=== PATIENT | female | born 1995 | race Caucasian/White ===

== ENCOUNTER 2017-10-27 06:33 | Emergency (ER) | payer BC, OTHER ==
[~2017-10-27] VITALS: Ht 160 cm; Wt 72.6 kg
--- OUTSIDE RECORDS SUMMARY | 2017-10-27 06:43 | XMS REPORT ---
Author Author DEONDRE PEDRAZA [facility] Address [address] [place] [address] Care Team Providers Care San[employer] Land[employer] Supervisor Name Role Phone DEONDRE PEDRAZA Unavailable PROBLEMS Type Condition ICD9-CM Code OZE33-YO Code Onset Dates Condition Status SNOMED Code Problem Anxiety F41.9 Active 57549531 Problem control counseling Z30.9 Active 53952546 ALLERGIES Substance Reaction Event Type Date Status Amoxicillin rash Drug Allergy Jan, Active SOCIAL HISTORY Never Assessed PLAN OF CARE Activity Details Follow Up prn Reason: VITAL SIGNS Height 64.5 in 2017-01-12 Weight 143 lbs 2017-01-12 Temperature 98.2 degrees Fahrenheit 2017-01-12 Heart Rate 70 bpm 2017-01-12 Respiratory Rate 16 2017-01-12 BMI 24.16 kg/m2 2017-01-12 Blood pressure systolic 120 mmHg 2017-01-12 Blood pressure diastolic 70 mmHg 2017-01-12 MEDICATIONS Medication Instructions Dosage Frequency Start Date End Date Duration Status Xanax 0.5 MG Orally Twice a day 1 tablet 12h Active Sertraline HCl 100 MG Orally Once a day 1 tablet 24h Active RESULTS No Results PROCEDURES No Known procedures IMMUNIZATIONS No Known Immunizations MEDICAL (GENERAL) HISTORY Type Description Date Medical History anxiety Surgical History Myringotomy with venilating tube insertion unknown Surgical History Tonsillectomy unknown Surgical History Adenoidectomy unknown
--- OUTSIDE RECORDS SUMMARY | 2017-10-27 06:43 | XMS REPORT | Continuity of Care Document ---
Author Author [facility] Address Unknown Phone Unavailable Allergies Active Description Code Type Severity Reaction Onset Reported/Identified Relationship to Patient Clinical Status Yes amoxicillin Drug Allergy N/A N/A 05/02/2011 Medications There is no data. Problems Date Dx Coded Attending Type Code Diagnosis Diagnosed By 05/02/2011 ELVIRA JJ MD 625.3 DYSMENORRHEA 05/02/2011 ASHLEY DRISCOLL DO 625.3 DYSMENORRHEA 04/15/2012 ELVIRA JJ MD V25.02 Contraceptives 04/15/2012 ASHLEY DRISCOLL DO V25.02 Contraceptives 03/31/2014 ASHLEY DRISCOLL DO V74.5 SCREENING EXAMINATION FOR VENEREAL DISEASE Procedures Code [place] [address] URINE TEST (IN- HOUSE) 05/03/2013 08629 GC/CHLAM URINE (STATE) 03/31/2014 [id number] TEST, URINE (IN- HOUSE) 03/31/2014 Results There is no data. Encounters ACCT No. Visit Date/Time Discharge Status Pt. Type Provider Facility Loc./Unit Complaint [id number] 03/31/2014 09:55:00 03/31/2014 23:59:59 CLS Outpatient ASHLEY DRISCOLL DO [id number] 05/03/2013 14:53:00 05/03/2013 23:59:59 CLS Outpatient ELVIRA JJ MD
[2017-10-27] MEDS ORDERED: KETOROLAC 30 MG/ML VIAL IVP STA (06:49)
[2017-10-27] MEDS ORDERED: NS IV 1000 ML 1,000 ML IV STA ×2 (06:49→08:35)
[2017-10-27 06:56] LABS: BASOPHILS % (AUTO) 0 % (0-10); EOSINOPHILS % (AUTO) 0 % (0-10); LYMPHOCYTES # (AUTO) 0.4 X 10^3 (1.0-4.0); LYMPHOCYTES % (AUTO) 3 % (12-44); MEAN CORPUSCULAR HEMOGLOBIN 31 PG (25-34); MEAN CORPUSCULAR HGB CONC 33 G/DL (32-36); MEAN CORPUSCULAR VOLUME 94 FL (80-99); MEAN PLATELET VOLUME 10.2 FL (7.4-10.4); MONOCYTES # (AUTO) 0.5 X 10^3 (0.0-1.0); MONOCYTES % (AUTO) 4 % (0-12); NEUTROPHILS # (AUTO) 13.1 X 10^3 (1.8-7.8); NEUTROPHILS % (AUTO) 93 % (42-75); PLATELET COUNT 298 10^3/uL (130-400); RED CELL DISTRIBUTION WIDTH 12.2 % (10.0-14.5); WHITE BLOOD COUNT 14.1 10^3/uL (4.3-11.0)
--- NOTE | 2017-10-27 06:56 | ED General ---
General Chief Complaint: General Problems/Pain Stated Complaint: VOMITING,POSS FEVER,DIZZY Source of Information: Patient Exam Limitations: No Limitations History of Present Illness Time Seen by Provider: 06:42 Initial Comments Here with report of nausea and vomiting with fever and feeling dizzy. Started yesterday evening. Tried taking some NyQuil last night but vomited that right afterwards. Has not been unable to keep anything else down since. States the vomiting started before the cough. Currently is on her menstrual period and has some lower abdominal cramping. She is not sure if shows related to her menstrual cycle or not. Seems to be more on the right lower side. Denies dysuria. No diarrhea. She did not have influenza vaccination this year. Timing/Duration: 12 Hours Severity: Moderate Associated Systoms: No Chest Pain, Cough, Fever/Chills, Loss of Appetite, Nausea/Vomiting, No Shortness of Air, No Weakness Allergies and Home Medications Allergies Coded Allergies: amoxicillin (Verified Allergy, Unknown, 10/27/17) Constitutional: see HPI, chills, fever EENTM: nose congestion, throat pain, No ear pain, No hoarseness Respiratory: cough, No short of breath Cardiovascular: no symptoms reported Gastrointestinal: see HPI, abdominal pain (lower), No diarrhea, nausea, vomiting Genitourinary: no symptoms reported LMP: Oct 24, 2017 Musculoskeletal: no symptoms reported Skin: no symptoms reported Psychiatric/Neurological: No Symptoms Reported All Other Systems Reviewed Negative Unless Noted: Yes Past Kcbhbna-Ulttfx-Bpzpwr Hx Patient Social History Alcohol Use: Occasionally Uses Recreational Drug Use: No Smoking Status: Never a Smoker Recent Foreign Travel: No Contact w/Someone Who Travel: No Recent Hopitalizations: No Physical Abuse: No Sexual Abuse: No Mistreated: No Fear: No Surgeries History of Surgeries: Yes Surgeries: Adenoidectomy, Ear Surgery, Tonsillectomy Respiratory History of Respiratory Disorde: No Cardiovascular History of Cardiac Disorders: No Neurological History of Neurological Disord: No Genitourinary History of Genitourinary Disor: No Gastrointestinal History of Gastrointestinal Di: No Musculoskeletal History of Musculoskeletal Dis: No Endocrine History of Endocrine Disorders: No HEENT History of HEENT Disorders: No Cancer History of Cancer: No Psychosocial History of Psychiatric Problem: No Suicide Risk Score: 0 Integumentary History of Skin or Integumenta: No Reviewed Nursing Assessment Reviewed/Agree w Nursing PMH: Yes Family Medical History Significant Family History: No Pertinent Family Hx Physical Exam Vital Signs Vital Sign - Last 12Hours 10/27/17 06:42 Temp 101.8 Pulse 109 Resp 20 B/P (MAP) 121/74 (90) Pulse Ox 98 O2 Delivery Room Air Capillary Refill : General Appearance: No Apparent Distress, WD/WN HEENT: PERRL/EOMI, Pharynx Normal Neck: Non Tender, Supple Respiratory: Lungs Clear, Normal Breath Sounds Cardiovascular: No Murmur, Tachycardia Gastrointestinal: Soft, Tenderness (question of mild tenderness with deep palpation bilateral lower quadrants with right greater than left.) Back: Normal Inspection, No CVA Tenderness, No Vertebral Tenderness Extremity: Normal Range of Motion, Non Tender Neurologic/Psychiatric: Alert, Oriented x3 Skin: Normal Color, Warm/Dry Progress/Results/Core Measures Suspected Sepsis SIRS Temperature: Pulse: Respiratory Rate: Laboratory Tests 10/27/17 06:45: White Blood Count 14.1H Blood Pressure / Mean: Laboratory Tests 10/27/17 06:45: Creatinine 0.81, Platelet Count 298, Total Bilirubin 0.7 Results/Orders Lab Results Laboratory Tests Test 10/27/17 06:45 10/27/17 07:03 Range/Units White Blood Count 14.1 H 4.3-11.0 10^3/uL Red Blood Count 4.30 L 4.35-5.85 10^6/uL Hemoglobin 13.5 11.5-16.0 G/DL Hematocrit 41 35-52 % Mean Corpuscular Volume 94 80-99 FL Mean Corpuscular Hemoglobin 31 25-34 PG Mean Corpuscular Hemoglobin Concent 33 32-36 G/DL Red Cell Distribution Width 12.2 10.0-14.5 % Platelet Count 298 130-400 10^3/uL Mean Platelet Volume 10.2 7.4-10.4 FL Neutrophils (%) (Auto) 93 H 42-75 % Lymphocytes (%) (Auto) 3 L 12-44 % Monocytes (%) (Auto) 4 0-12 % Eosinophils (%) (Auto) 0 0-10 % Basophils (%) (Auto) 0 0-10 % Neutrophils # (Auto) 13.1 H 1.8-7.8 X 10^3 Lymphocytes # (Auto) 0.4 L 1.0-4.0 X 10^3 Monocytes # (Auto) 0.5 0.0-1.0 X 10^3 Eosinophils # (Auto) 0.0 0.0-0.3 10^3/uL Basophils # (Auto) 0.0 0.0-0.1 10^3/uL Neutrophils % (Manual) 90 % Lymphocytes % (Manual) 2 % Monocytes % (Manual) 2 % Band Neutrophils 6 % Blood Morphology Comment NORMAL Sodium Level 140 135-145 MMOL/L Potassium Level 3.7 3.6-5.0 MMOL/L Chloride Level 103 98-107 MMOL/L Carbon Dioxide Level 25 21-32 MMOL/L Anion Gap 12 5-14 MMOL/L Blood Urea Nitrogen 17 7-18 MG/DL Creatinine 0.81 0.60-1.30 MG/DL Estimat Glomerular Filtration Rate > 60 BUN/Creatinine Ratio 21 Glucose Level 139 H 70-105 MG/DL Calcium Level 9.4 8.5-10.1 MG/DL Total Bilirubin 0.7 0.1-1.0 MG/DL Aspartate Amino Transf (AST/SGOT) 16 5-34 U/L Alanine Aminotransferase (ALT/SGPT) 11 0-55 U/L Alkaline Phosphatase 72 40-136 U/L C-Reactive Protein High Sensitivity 0.67 H 0.00-0.50 MG/DL Total Protein 7.5 6.4-8.2 GM/DL Albumin 4.4 3.2-4.5 GM/DL Serum Test, Qualitative NEGATIVE NEGATIVE Urine Color YELLOW Urine Clarity SLIGHTLY CLOUDY Urine pH 7 5-9 Urine Specific [place] 1.005 L 1.016-1.022 Urine Protein 1+ H NEGATIVE Urine Glucose (UA) NEGATIVE NEGATIVE Urine Ketones NEGATIVE NEGATIVE Urine Nitrite NEGATIVE NEGATIVE Urine Bilirubin 1+ H NEGATIVE Urine Urobilinogen NORMAL NORMAL MG/DL Urine Leukocyte Esterase 1+ H NEGATIVE Urine RBC (Auto) 4+ H NEGATIVE Urine RBC 2-5 H /HPF Urine WBC 0-2 /HPF Urine Squamous Epithelial Cells 2-5 /HPF Urine Crystals NONE /LPF Urine Bacteria NEGATIVE /HPF Urine Casts NONE /LPF Urine Mucus NEGATIVE /LPF Urine Culture Indicated NO Micro Results Microbiology 10/27/17 Influenza Types A,B Antigen (SAMANTHA) - Final, Complete My Orders Orders - LATASHA JHA MD Cbc With Automated Diff (10/27/17 06:49) Comprehensive Metabolic Panel (10/27/17 06:49) Hs C Reactive Protein (10/27/17 06:49) Hcg,Qualitative Serum (10/27/17 06:49) Ua Culture If Indicated (10/27/17 06:49) Influenza A And B Antigens (10/27/17 06:49) Ondansetron Injection (Zofran Injectio (10/27/17 07:00) Ns Iv 1000 Ml (Sodium Chloride 0.9%) (10/27/17 06:49) Saline Lock/Iv-Start (10/27/17 06:49) Ketorolac Injection (Toradol Injection) (10/27/17 06:49) Manual Differential (10/27/17 06:45) Acetaminophen Tablet (Tylenol Tablet) (10/27/17 07:37) Ct Abd/Pelv W (Appendicitis) (10/27/17 07:38) Iohexol Injection (Omnipaque 350 Mg/Ml 1 (10/27/17 07:45) Ns (Ivpb) (Sodium Chloride 0.9% Ivpb Bag (10/27/17 07:45) Promethazine Injection (Phenergan Injec (10/27/17 08:35) Ns Iv 1000 Ml (Sodium Chloride 0.9%) (10/27/17 08:35) Diphenhydramine Injection (Benadryl Inje (10/27/17 08:45) Medications Given in ED Current Medications Medications Dose Ordered Sig/Nurys Route Start Time Stop Time Status Last Admin Dose Admin Diphenhydramine HCl 25 mg ONCE ONCE IVP 10/27/17 08:45 10/27/17 08:46 DC 10/27/17 08:45 25 MG Iohexol 100 ml ONCE ONCE IV 10/27/17 07:45 10/27/17 07:57 DC 10/27/17 07:54 100 ML Ondansetron HCl 4 mg ONCE ONCE IVP 10/27/17 07:00 10/27/17 07:01 DC 10/27/17 07:02 4 MG Sodium Chloride 100 ml ONCE ONCE IV 10/27/17 07:45 10/27/17 07:57 DC 10/27/17 07:54 80 ML Vital Signs/I&O Vital Sign - Last 12Hours 10/27/17 10/27/17 06:42 07:48 Temp 101.8 101.8 Pulse 109 Resp 20 B/P (MAP) 121/74 (90) Pulse Ox 98 O2 Delivery Room Air Capillary Refill : Progress Note : Progress Note Seen and evaluated. IV, labs, UA, normal saline 1 L bolus, Toradol 30 mg IV and Zofran 4 mg IV. We'll attempt oral acetaminophen as well as nausea improved. Monitor patient. 0820: CT abdomen and pelvis was ordered due to elevated white count and the right lower quadrant pain. We will rule out appendicitis and other intra-abdominal pathology. Acetaminophen was given as patient's fever remained greater than 101. Monitor patient. 0830: Patient does have migraine headache that is typical for her. She states it's right temporal and aching. Phenergan 12.5 mg IV and Benadryl 25 mg IV ordered. Repeat normal saline 1 L bolus. Monitor patient. 0915: Patient doing much better. Discharged home with return precautions. Patient verbalize understanding instructions and agreement with plan. Diagnostic Imaging Diagonstic Imaging: CT Plain Films/CT/US/NM/MRI: abdomen, pelvis Comments NAME: [facility]A [facility] REC#: [id number] PT STATUS: REG ER : 1995 PHYSICIAN: LATASHA JHA MD ADMIT DATE: 10/27/17/ER Draft Date of Exam:10/27/17 CT ABD/PELV W (APPENDICITIS) INDICATION: Vomiting and fever. EXAMINATION: CT abdomen and pelvis obtained with IV contrast bolus. There is no prior study for comparison. FINDINGS: The visualized portions of the lung bases are clear. There are no pleural fluid collections. There is no free intraperitoneal air. The liver shows diffuse fatty infiltration with no focal lesions. Gallbladder was unremarkable. The spleen, adrenals, and pancreas appear unremarkable. Kidneys bilaterally appear unremarkable. There is no retroperitoneal mass or adenopathy. There is no ascites or abnormal fluid pressure. The appendix appears normal. There are a few scattered fluid filled loops of small bowel which may represent gastroenteritis. There is no overt bowel obstruction or focal bowel wall thickening. IMPRESSION: No CT evidence of appendicitis. Fatty infiltration of the liver. There are a few scattered fluid filled loops of small bowel which may represent gastroenteritis. There is no overt bowel obstruction or other focal abnormality. Dictated on workstation # [id number] Dict: 10/27/17 0807 Trans: 10/27/17 0820 [facility] [id number] Interpreted by: LYNNETTE ERNST MD Electronically signed by: Departure Impression Impression: Primary Impression: Nausea and vomiting Qualified Codes: R11.2 - Nausea with vomiting, unspecified Additional Impressions: Fever Qualified Codes: R50.9 - Fever, unspecified Migraine Qualified Codes: G43.909 - Migraine, unspecified, not intractable, without status migrainosus Disposition: 01 HOME, SELF-CARE Condition: Improved Departure-Patient Inst. Decision time for Depature: 09:20 Referrals: NO,LOCAL PHYSICIAN (PCP/Family) Primary Care Physician Patient Instructions: Fever, Adult (DC), Migraine Headache (DC), Nausea and Vomiting, Adult (DC) Add. Discharge Instructions: All discharge instructions reviewed with patient and/or family. Voiced understanding. Drink plenty of fluids. Follow-up with your Dr. in a few days for recheck and further evaluation. Return for worse pain, fever, vomiting, weakness, breathing problems or other concerns as needed. Clear liquid diet for 24 hours and then advance as tolerated. You may take Tylenol 1000 mg every 8 hours and/ or ibuprofen 600 mg every 8 hours as needed for fever or pain. Scripts Ondansetron (Ondansetron Odt) 4 Mg Tab.rapdis 4 MG PO Q6H Y for NAUSEA/VOMITING, #8 TAB 0 Refills Prov: LATASHA JHA MD 10/27/17 Work/School Note: Work Release Form Date Seen in the Emergency Department: Oct 27, 2017 Return to Work: Oct 28, 2017 Restrictions: Return-No Fever (24hrs) LATASHA JHA MD Oct 27, 2017 06:56
[2017-10-27] MEDS ORDERED: ONDANSETRON 4 MG/2 ML (SDV) Z0FRAN IVP ONE (07:00)
[2017-10-27 07:11] LABS: KETONES,URINE NEGATIVE (NEGATIVE); LEUKOCYTE ESTERASE ,URINE 1+ (NEGATIVE); NITRITE,URINE NEGATIVE (NEGATIVE); PH,URINE 7 (5-9); PROTEIN,URINE 1+ (NEGATIVE); UROBILINOGEN,URINE NORMAL (NORMAL)
[2017-10-27 07:12] LABS: ALANINE AMINOTRANSFERASE 11 U/L (0-55); ALBUMIN 4.4 GM/DL (3.2-4.5); ANION GAP 12 MMOL/L (5-14); ASPARTATE AMINO TRANSFERASE 16 U/L (5-34); BILIRUBIN,TOTAL 0.7 MG/DL (0.1-1.0); BLOOD UREA NITROGEN 17 MG/DL (7-18); BUN/CREATININE RATIO 21; CALCIUM 9.4 MG/DL (8.5-10.1); CARBON DIOXIDE 25 MMOL/L (21-32); CHLORIDE 103 MMOL/L (98-107); CREATININE SERUM 0.81 MG/DL (0.60-1.30); GFR ESTIMATED > 60; GLUCOSE 139 MG/DL (70-105); POTASSIUM 3.7 MMOL/L (3.6-5.0); SODIUM 140 MMOL/L (135-145); TOTAL PROTEIN 7.5 GM/DL (6.4-8.2); hs C REACTIVE PROTEIN 0.67 MG/DL (0.00-0.50)
[2017-10-27 07:32] LABS: BILIRUBIN,URINE 1+ (NEGATIVE); WBC,URINE 0-2 /HPF
[2017-10-27] MEDS ORDERED: ACETAMINOPHEN 500 MG TAB (TYLENOL) PO STA (07:37)
[2017-10-27 07:39] LABS: BAND NEUTROPHILS 6 %; LYMPHOCYTES % (MANUAL) 2 %; NEUTROPHILS % (MANUAL) 90 %
[2017-10-27] MEDS ORDERED: NS 100 ML (IVPB) BAG IV ONE (07:45)
[2017-10-27] MEDS ORDERED: IOHEXOL 350 MG/ML 100 ML (OMNIPAQUE 350) VIAL IV ONE (07:45)
--- NOTE | 2017-10-27 08:21 | Diagnostic Imaging Report ---
INDICATION: Vomiting and fever. EXAMINATION: CT abdomen and pelvis obtained with IV contrast bolus. There is no prior study for comparison. FINDINGS: The visualized portions of the lung bases are clear. There are no pleural fluid collections. There is no free intraperitoneal air. The liver shows diffuse fatty infiltration with no focal lesions. Gallbladder was unremarkable. The spleen, adrenals, and pancreas appear unremarkable. Kidneys bilaterally appear unremarkable. There is no retroperitoneal mass or adenopathy. There is no ascites or abnormal fluid pressure. The appendix appears normal. There are a few scattered fluid filled loops of small bowel which may represent gastroenteritis. There is no overt bowel obstruction or focal bowel wall thickening. IMPRESSION: No CT evidence of appendicitis. Fatty infiltration of the liver. There are a few scattered fluid filled loops of small bowel which may represent gastroenteritis. There is no overt bowel obstruction or other focal abnormality. Dictated by: Dictated on workstation # [id number]
[2017-10-27] MEDS ORDERED: PROMETHAZINE INJ 25 MG/ML (PHENERGAN) AMP IVP STA (08:35)
[2017-10-27] MEDS ORDERED: diphenhydrAMINE 50 MG/ML INJ (BENADRYL) IVP ONE (08:45)
[2017-10-27] MEDS ORDERED: ONDA4TAB11 PO (09:22)
[2017-10-27 09:30] VITALS: BP 122/70
== END 2017-10-27 09:30 | disposition home or self-care (01) ==
LOC: ER 06:39
DX: R11.2 Nausea with vomiting, unspecified (principal); R50.9 Fever, unspecified; G43.909 Migraine, unspecified, not intractable, without status migrainosus; Z90.89 Acquired absence of other organs
CPT/HCPCS: 36415; 74177; 80053; 81000; 84703; 85007; 85027; 86141; 87804; 96374; 96375